=== PATIENT | female | born 2005 | race Caucasian/White ===

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

== ENCOUNTER 2025-06-01 09:08 | Emergency (ER) | payer OTHER, BC ==
[~2025-06-01] VITALS: Ht 162.6 cm; Wt 60.5 kg
[2025-06-01 09:32] VITALS: TEMP 97.8
[2025-06-01 10:16] LABS: URINE HCG NEGATIVE (NEG)
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
[2025-06-01] MEDS ORDERED: CYCL-1 PO (11:21)
[2025-06-01] MEDS ORDERED: IBUP-860 PO (11:21)
[2025-06-01] MEDS: ibuprofen tablet 400 MG TABLET PO ONE (11:43)
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
[2025-06-01 12:37] VITALS: BP 118/69; PULSE 68; RESP 15; O2SAT 100
== END 2025-06-01 12:38 | disposition home or self-care (01) ==
LOC: ER 09:08
DX: Z04.1 Encounter for examination and observation following transport accident (principal); Z88.0 Allergy status to penicillin; Z88.1 Allergy status to other antibiotic agents; Z79.899 Other long term (current) drug therapy
CPT/HCPCS: 72040; 72070; 81025; 99284